=== PATIENT | female | born 1980 | race Caucasian/White ===

== ENCOUNTER 2016-10-09 09:49 | Emergency (ER) | payer OTHER ==
[~2016-10-09] VITALS: Ht 160 cm; Wt 68.0 kg
--- NOTE | 2016-10-09 11:03 | ED GENERAL ADULT ---
History of Present Illness General Chief Complaint: Palpitations Stated Complaint: LIGHTHEADED, PALPITATIONS, BLURRY VISION Source: patient Exam Limitations: no limitations Vital Signs & Intake/Output Vital Signs & Intake/Output Vital Signs Date Time Temp Pulse Resp B/P Pulse O2 O2 Flow FiO2 Ox Delivery Rate 10/09 1346 97.6 74 18 109/62 98 Room Air 10/09 1210 Room Air Room Air 10/09 1210 97.3 88 18 108/58 100 Room Air 10/09 1005 96.9 100 20 114/66 100 Room Air Allergies Coded Allergies: banana (Intermediate, STOMACH PAIN 10/09/16) gluten (Intermediate, ?R/T CELIAC DISEASE 10/09/16) Reconcile Medications No Known Home Medications Triage Note: TRIAGE: PT TO ER C/C LIGHTHEADEDNESS, PALPITATIONS, BLURRY VISION, STOMACH PAIN AND NAUSEA WHEN EATING OR DRINKING. HAD "REALLY BAD VERTIGO STARTING SUNDAY" BUT NOW JUST LIGHTHEADED. WAS IN [place] ED ON SUNDAY AND WAS TOLD "BECAUSE THEY THOUGHT I HAVE LYME DISEASE AND IF I HAVE A CHRONIC ILLNESS I SHOULDN'T BE IN THE EMERGENCY ROOM". WAS REFERRED "TO EVERY SINGLE KIND OF DOCTOR AND TOLD ME TO GO TO THEM ALL". WAS SEEN AT PMD'S OFFICE ON SUNDAY AND WAS TOLD IT WAS VERTIGO, STARTED ON MECLIZINE "BUT IT DIDN'T REALLY HELP, JUST MADE ME REALLY TIRED". CALLED PMD SUNDAY AND HAD PRESCRIPTION FOR SCOPALAMINE, PLACED SAME ON SUNDAY AND REMOVED YESTERDAY. STATES IT DIDN'T REALLY HELP. ON SUNDAY SAW DR PALMA "BECAUSE MY HEART WAS GOING REALLY CRAZY" AND HAD EKG. DR PALMA REFERRED PATIENT FOR OUTPATIENT BLOOD WORK FOR LYME DISEASE WHICH SHE HAS NOT HAD DONE YET, WAS HOPING SHE COULD GET IT DONE WHILE IN THE ER TODAY. Triage Nurses Notes Reviewed? yes Onset: Gradual Duration: week(s): (1) Timing: no prior history Injury Environment: home Severity: moderate Severity Numbers: 8 Modifying Factors: Improves With: immobilization. Worsens With: movement. : No Patient currently breastfeeds: No HPI: Patient is a 35-year-old female with history of cholecystectomy and scleral banding presenting to the emergency department with chief complaint of nausea, episodes of blurred vision, lightheadedness and dizziness that have been going on for the past one week. She reports that she was tested for Lyme about one year ago because she had similar symptoms and only 1 band K back positive. She was not treated for Lyme at the time. She has been fine since then. No history of tick bites or rashes. She reports dizziness is worse with positional changes. She reports that the dizziness has somewhat somewhat subsided over the past week with meclizine and scopolamine patches. She was seen and another emergency department and told that they do not treat chronic issues and also to follow-up with her PCP. She followed up with her PCP 5 days ago and was given a scopolamine patch. She reports little to no change with a scopolamine patch in addition to the meclizine. No actual vomiting. Denies any change in bowel habits. Denies any urinary frequency urgency or dysuria. Denies any recent change in contact lens prescription. Her father has multiple sclerosis. Denies abdominal pain. Denying any weakness. She reports low-grade fevers over the past 1 week. MAXIMUM TEMPERATURE of 100F. No neck pain. No headaches. (KERI LOWRY) Past History Travel History Traveled to [place] past 21 day No Medical History Any Pertinent Medical History? 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 No (KERI LOWRY) Review of Systems Review of Systems Constitutional: Reports: fever, malaise. Comments Review of systems: See HPI, All other systems negative. Constitutional, no chills or weight loss HEENT: no sore throat no congestion Cardiovascular: No chest pain , orthopnea or ankle swelling Skin, no jaundice no rashes Respiratory: No dyspnea cough sputum or hemoptysis GI: no vomiting : No dysuria No hematuria Muscle skeletal: no back pain, no neck pain, Neurologic: No numbness no confusion NO BENNETT Psych: No stress anxiety or depression,. Heme/endocrine: No bruising no bleeding no polyuria or polydipsia Immunology: No splenectomy or history of AIDS (KERI LOWRY) Physical Exam Physical Exam General Appearance: well developed/nourished, no apparent distress, alert, awake , comfortable Comments: Well-developed well-nourished person in no acute distress HEENT: Normal EENT exam, extraocular motion intact, no nystagmus. Pupils equally round and reactive to light and accommodation. Nose is atraumatic. External auditory canal and Tympanic membranes clear. Pharynx normal. No swelling or edema. Funduscopic exam is limited secondary to no dilation prior to the exam although no obvious abnormalities noted. No retinal HEMORRAGE, detachment present. Neck: Supple, no lymphadenopathy, normal range of motion without pain or tenderness Back: Nontender, no CVA tenderness. Full range of motion Cardiovascular: TACHY rate and rhythms no murmurs rubs or gallops, normal JVP Respiratory: Chest nontender. No respiratory distress.breath sounds clear to auscultation bilaterally Abdomen: Soft, nontender nondistended, no appreciable organomegaly. Normal bowel sounds. No ascites Extremity: No edema, no calf tenderness to palpation, normal and equal pulses. Neuro: Alert oriented x3, motor sensory normal, cranial nerves II through XII grossly intact. Cerebellar testing unremarkable. Cerebellar testing is unremarkable. Skin: No appreciable rash on exposed skin, skin is warm and dry. Psych: Mood and affect is normal, memory and judgment is normal. Core Measures ACS in differential dx? No CVA/TIA Diagnosis: No Severe Sepsis Present: No Septic Shock Present: No (KERI LOWRY) Progress Differential Diagnoses I considered the following diagnoses in my evaluation of the patient: Viral labyrinthitis, vertigo, viral syndrome, multiple sclerosis, intracranial mass/ process, dehydration, like to abnormality, Lyme disease or other tickborne illness Plan of Care: Orders Procedure Date/time Status Add-on Test (ER Only) 10/09 1250 Active CULTURE,URINE 10/09 1154 Active FOLIC ACID 10/09 1132 Complete VITAMIN B12 10/09 1132 Complete MISTAKE 10/09 1128 Active URINE 10/09 1128 Complete URINALYSIS 10/09 1128 Complete TSH REFLEX 10/09 1128 Complete TROPONIN LEVEL 10/09 1128 Complete LYME TITRE 10/09 1128 Active COMPREHENSIVE METABOLIC PANEL 10/09 1128 Complete CBC WITHOUT DIFFERENTIAL 10/09 112 Complete EKG 10/09 0952 Active Laboratory Tests 10/09/16 1200: Vitamin B12 > 1000 H, Folate > 20.0 H 10/09/16 1200: Anion Gap 10, Estimated GFR > 60, BUN/Creatinine Ratio 7.1, Glucose 94, Calcium 10.3 H, Total Bilirubin 1.2, AST 16, ALT 38, Alkaline Phosphatase 60, Troponin I < 0.01, Total Protein 7.3, Albumin 4.6, Globulin 2.7, Albumin/Globulin Ratio 1.7, TSH &T3 &Free T4 Intrp 0.860, CBC w Diff NO MAN DIFF REQ, RBC 5.45 H, MCV 85.2, MCH 29.4, RDW 13.4, MPV 10.1, Gran % 72.8, Lymphocytes % 21.4, Monocytes % 5.0, Eosinophils % 0.3, Basophils % 0.5, Absolute Granulocytes 4.9, Absolute Lymphocytes 1.5, Absolute Monocytes 0.3, Absolute Eosinophils 0, Absolute Basophils 0, PUBS MCHC 34.5, Lyme Disease Antibody Pending 10/09/16 1154: Urine Color STRAW, Urine Clarity HAZY H, Urine pH 7.0, Ur Specific [place] 1.010, Urine Protein NEG, Urine Ketones >=80, Urine Nitrite NEG, Urine Bilirubin NEG, Urine Urobilinogen 0.2, Ur Leukocyte Esterase TRACE H, Ur Microscopic SEDIMENT EXAMINED, Urine RBC RARE, Urine WBC 1-3 H, Ur Epithelial Cells MANY H , Urine Bacteria MOD H, Urine Mucus RARE, Urine Hemoglobin NEG, Urine Glucose NEG, Urine Test NEGATIVE Microbiology 10/09 115 URINE ROUT: Urine Culture - RECD Diagnostic Imaging: Viewed by Me: Radiology Read. Discussed w/RAD: Radiology Read. Radiology Impression: PATIENT: CRISTY TOM PRESENT AGE: 35 PATIENT ACCOUNT NO: [id number] : 79 LOCATION: [facility] ORDERING PHYSICIAN: KERI PETERSON SERVICE DATE: 10/09/16-1135 EXAM TYPE: CAT - CT HEAD WO IV CONTRAST EXAMINATION: CT HEAD WITHOUT CONTRAST CLINICAL INFORMATION: Dizziness and vision changes. COMPARISON: None TECHNIQUE: Contiguous axial imaging was performed from the skull base to vertex without intravenous administration of contrast. DLP: 600 mGy-cm FINDINGS: There is no evidence of acute intracranial hemorrhage or territorial infarction. No abnormal mass effect or midline shift is seen. Chaudhry to white matter differentiation is well preserved. No extra-axial fluid collections are identified. The ventricles are normal in size. There is no abnormal attenuation within the brain parenchyma. The osseous structures and soft tissues are normal. The mastoid air cells and visualized portions of the paranasal sinuses are well aerated. IMPRESSION: No acute intracranial process seen. Initial ED EKG: NONSPECIFIC t ABNORMALITIES IN THE INFERIOR LEADS, 86 BPM Prior EKG: unchanged Comments: 10/09/2016 11:52:30 AM arrival patient is in no acute distress, borderline tachycardic EKGs normal sinus with no acute changes. Patient reporting visual changes with nausea and vertigo-like symptoms 1 week with positive family history of MS. Patient is 35 and has not been evaluated for MS in the past. She has never had symptoms in the past. Patient also reports that her primary care physician gave her a requisition for Lyme titer to be done this week. Patient is currently stable vitals are stable. No focal deficits or exam findings. She'll be hydrated with fluids. We'll assess with blood work, B12, folic acid level as patient does have restricted diet secondary to being a vegetarian. We'll also assess orthostatics. Patient will go for CT of the head , it was extending to the patient that this is not the best imaging to assess for MS but it is a good initial imaging study. She will likely need outpatient MRI and neurology follow-up. 10/09/2016 1:36:52 PM patient informed of all lab work results and imaging studies. Patient feeling improved after fluids. Feels less "shaky". Blood glucose level was 94 on blood work. PERC negative. Patient will follow up with neurology if symptoms persists. Educated on use of [id number] LIPO FLAVINOID PLUS. Thyroid function within normal range. Troponin is negative. EKG is essentially unchanged. Patient educated on increasing fluids as well as she does have more than 80 ketones in her urine. (JEFFREY PETERSON,KERI) Departure Departure Time of Disposition: 1330 Disposition: OTHER [facility] (ACUTE) Condition: Stable Clinical Impression Primary Impression: Dizziness Secondary Impressions: Palpitations Referrals: ARTI SIDHU,EVER WARD MD,IRASEMA Quintana (PCP/Family) Additional Instructions: Follow-up with your primary care physician as well as with neurology. He will need further evaluation if symptoms persist. Try using liPO flavonoid plus over -the-counter to help with dizziness. Increase fluid intake. You may eventually need an MRI of her brain. Return for worsening symptoms or concerns. Departure Forms: Customer Survey General Discharge Information Prescriptions: Current Visit Scripts No Known Home Medications (KERI LOWRY) PA/COMPENSATION CONSULTANT Co-Sign Statement Statement: ED Attending supervision documentation- [] I saw and evaluated the patient. I have also reviewed all the pertinent lab results and diagnostic results. I agree with the findings and the plan of care as documented in the PA's/COMPENSATION CONSULTANT's documentation. [X] I have reviewed the ED Record and agree with the PA's/COMPENSATION CONSULTANT's documentation. [] Additions or exceptions (if any) to the PAs/COMPENSATION CONSULTANT's note and plan are summarized below: [] (MILI SIDHU,RODOLFO Ortiz) Critical Care Note Critical Care Note Critical Care Time: non-applicable (KERI LOWRY)
[2016-10-09 12:12] LABS: ABSOLUTE BASOPHIL COUNT 0 /CUMM (0.0-0.2); ABSOLUTE EOSINOPHIL COUNT 0 /CUMM (0.0-0.7); ABSOLUTE GRANULOCYTE CT 4.9 /CUMM (1.4-6.5); ABSOLUTE LYMPH COUNT 1.5 /CUMM (1.2-3.4); ABSOLUTE MONOCYTE COUNT 0.3 /CUMM (0.10-0.60); BASOPHIL % 0.5 % (0.0-2.0); EOSINOPHIL % 0.3 % (0-5); GRANULOCYTE % 72.8 % (42.2-75.2); HEMATOCRIT 46.5 % (37-47); MEAN CORPUSCULAR HGB 29.4 PG (27.0-31.0); MEAN CORPUSCULAR HGB CONC 34.5 G/DL (33.0-37.0); MEAN CORPUSCULAR VOLUME 85.2 FL (81.0-99.0); MEAN PLATELET VOLUME 10.1 FL (7.4-10.4); PLATELET COUNT 231 /CUMM (130-400); RBC DISTRIBUTION WIDTH 13.4 % (11.5-14.5); RED BLOOD CELL CT 5.45 /CUMM (4.20-5.40); WHITE BLOOD CELL COUNT 6.8 /CUMM (4.8-10.8)
--- NOTE | 2016-10-09 13:19 | CT SCAN REPORT ---
EXAMINATION: CT HEAD WITHOUT CONTRAST CLINICAL INFORMATION: Dizziness and vision changes. COMPARISON: None TECHNIQUE: Contiguous axial imaging was performed from the skull base to vertex without intravenous administration of contrast. DLP: 600 mGy-cm FINDINGS: There is no evidence of acute intracranial hemorrhage or territorial infarction. No abnormal mass effect or midline shift is seen. Chaudhry to white matter differentiation is well preserved. No extra-axial fluid collections are identified. The ventricles are normal in size. There is no abnormal attenuation within the brain parenchyma. The osseous structures and soft tissues are normal. The mastoid air cells and visualized portions of the paranasal sinuses are well aerated. IMPRESSION: No acute intracranial process seen.
[2016-10-09 13:46] VITALS: BP 109/62
== END 2016-10-09 13:51 | disposition short-term general hospital (02) ==
LOC: ERH 09:49
PROVIDERS: Physician Assistant
DX: R42 Dizziness and giddiness (principal); R00.2 Palpitations; H53.8 Other visual disturbances; R11.0 Nausea
CPT/HCPCS: 86618; 81001; 81025; 87086; 93005; 93010

== ENCOUNTER 2018-02-17 07:26 | Emergency (ER) | payer OTHER ==
[~2018-02-17] VITALS: Ht 160 cm; Wt 68.0 kg
[~2018-02-17 07:26] MED LIST: MULTIVITAMINS1 EAC9 PO; VITAMIN D1000 UNIT PO
[2018-02-17 08:19] LABS: ABSOLUTE BASOPHIL COUNT 0 /CUMM (0.0-0.2); ABSOLUTE EOSINOPHIL COUNT 0.1 /CUMM (0.0-0.7); ABSOLUTE GRANULOCYTE CT 3.7 /CUMM (1.4-6.5); ABSOLUTE LYMPH COUNT 1.2 /CUMM (1.2-3.4); ABSOLUTE MONOCYTE COUNT 0.3 /CUMM (0.10-0.60); BASOPHIL % 0.6 % (0.0-2.0); EOSINOPHIL % 1.8 % (0-5); GRANULOCYTE % 68.8 % (42.2-75.2); HEMATOCRIT 45.7 % (37-47); MEAN CORPUSCULAR HGB 29.6 PG (27.0-31.0); MEAN CORPUSCULAR HGB CONC 34.2 G/DL (33.0-37.0); MEAN CORPUSCULAR VOLUME 86.5 FL (81.0-99.0); MEAN PLATELET VOLUME 11.1 FL (7.4-10.4); PLATELET COUNT 196 /CUMM (130-400); RED BLOOD CELL CT 5.28 /CUMM (4.20-5.40); WHITE BLOOD CELL COUNT 5.4 /CUMM (4.8-10.8)
--- NOTE | 2018-02-17 11:00 | ED GI/GU/ABDOMINAL COMPLAINT ---
History of Present Illness General Chief Complaint: Nausea, Vomiting, Diarrhea Stated Complaint: NAUSEA Source: patient Exam Limitations: no limitations Vital Signs & Intake/Output Vital Signs & Intake/Output Vital Signs Date Time Temp Pulse Resp B/P B/P Pulse O2 O2 Flow FiO2 Mean Ox Delivery Rate 02/17 1138 98.2 80 20 108/60 99 02/17 0935 82 20 112/62 98 Room Air 02/17 0730 98.0 99 18 115/81 98 Room Air Allergies Coded Allergies: banana (Intermediate, STOMACH PAIN 10/09/16) gluten (Intermediate, DOES NOT HAVE CELIACS, HAS SENSITIVITY PER PT 05/20/17) Reconcile Medications Cholecalciferol (Vitamin D3) (Vitamin D) 1,000 UNIT TABLET 1 TAB PO DAILY SUPPLEMENT (Reported) Multiple Vitamin (Multivitamins) 1 EACH TABLET 1 TAB PO DAILY SUPPLEMENT ( Reported) Triage Note: 37 YO FEMALE TOT RIAGE FOR EVAL OF RLQ PAIN AND +NAUSEA SINCE THIS AM. PT DENIES URIANRY S/S, DENIES DIARRHEA. AFEBRILE. Triage Nurses Notes Reviewed? yes LMP (ages 10-50): unknown ? N Is pt currently ? No Onset: Abrupt Duration: day(s): (2), constant, continues in ED, getting worse Timing: single episode today Quality/Severity: cramping Severity Numbers: 5 Location: right lower quadrant Radiation: no radiation Activities at Onset: none Prior Abdominal Problems: none Past Sexual History: Unobtainable at this time No Modifying Factors: none HPI: 37-year-old female history of endometriosis, celiac disease resents for evaluation of right lower quadrant abdominal pain and nausea. Patient states symptoms started about 2 days ago and been persistent. The pain is located in the right lower quadrant does not radiate describes cramping. She states that this pain is different from her usual endometriosis pain. No vaginal bleeding no discharge. No diarrhea. She reports nausea but no vomiting. She is not taken any medicine for pain she rates the pain as a 5 out of 10. No recent abdominal surgery. She is status post cholecystectomy. No fever no shortness of breath no back pain or urinary symptoms (Elliot Lima) Past History Travel History Traveled to [place] past 21 day No Medical History Any Pertinent Medical History? see below for history Neurological: NONE EENT: DETACHED RETINA Cardiovascular: NONE Respiratory: NONE Gastrointestinal: ?CELIAC DISEASE Hepatic: cholelithiasis Renal: nephrolithiasis Musculoskeletal: SHINGLES Psychiatric: NONE Endocrine: NONE Blood Disorders: NONE Cancer(s): NONE CIRCLE EDGER/Reproductive: endometriosis Surgical History Surgical History: cholecystectomy, LASER THERAPY TO LEFT EYE FOR RETINAL DETACHMENT Psychosocial History What is your primary language Ivorian Tobacco Use: Never used Family History Family History, If Any: Relation not specified for: FHx: multiple sclerosis Hx Contributory? No (Elliot Lima) Review of Systems Review of Systems Constitutional: Reports: no symptoms. EENTM: Reports: no symptoms. Respiratory: Reports: no symptoms. Cardiovascular: Reports: no symptoms. GI: Reports: see HPI, abdominal pain, nausea. Genitourinary: Reports: no symptoms. Musculoskeletal: Reports: no symptoms. Skin: Reports: no symptoms. Neurological/Psychological: Reports: no symptoms. Hematologic/Endocrine: Reports: no symptoms. Immunologic/Allergic: Reports: no symptoms. All Other Systems: Reviewed and Negative (Elliot Lima) Physical Exam Physical Exam General Appearance: well developed/nourished, no apparent distress, alert, awake Head: atraumatic, normal appearance Eyes: Bilateral: normal appearance, PERRL, EOMI. Ears, Nose, Throat, Mouth: hearing grossly normal, moist mucous membrane Neck: normal inspection, supple, full range of motion Respiratory: normal breath sounds, chest non-tender, no respiratory distress, lungs clear Cardiovascular: regular rate/rhythm, normal peripheral pulses Peripheral Pulses: 2+ radial (R), 2+ radial (L) Gastrointestinal: normal bowel sounds, soft, no organomegaly, tenderness (right lower quadrant) Back: normal inspection, normal range of motion, no vertebral tenderness Extremities: normal range of motion Neurologic/Psych: no motor/sensory deficits, awake, alert, oriented x 3, normal gait, normal mood/affect Skin: intact, normal color, warm/dry Core Measures ACS in differential dx? No Sepsis Present: No Sepsis Focused Exam Completed? No (Elliot Lima) Progress Differential Diagnosis: appendicitis, biliary colic, bowel obstruction, diverticulitis, ectopic , endometritis, hepatitis, hernia, ischemic bowel, inflamm bowel dis, intrauterine , kidney stone, ovarian cyst, pancreatitis, SBO, threatened AB, UTI/pyelo Plan of Care: Orders Procedure Date/time Status Add-on Test (ER Only) 02/17 1025 Active Add-on Test (ER Only) 02/17 0851 Active LIPASE 02/17 758 Complete HUMAN BETA HCG SCREEN 02/17 758 Complete C-REACTIVE PROTEIN 02/17 758 Complete COMPREHENSIVE METABOLIC PANEL 02/17 757 Complete CBC WITHOUT DIFFERENTIAL 02/17 757 Complete URINALYSIS 02/17 07 Complete Laboratory Tests 02/17/18 0758: Anion Gap 12, Estimated GFR > 60, BUN/Creatinine Ratio 11.4, Glucose 102 H, Calcium 9.4, Total Bilirubin 0.8, AST 18, ALT 36, Alkaline Phosphatase 55, C- Reactive Prot, Quant < 0.5, Total Protein 6.7, Albumin 4.2, Globulin 2.5, Albumin/Globulin Ratio 1.7, Lipase 465 H, Total Beta HCG NEGATIVE, CBC w Diff NO MAN DIFF REQ, RBC 5.28, MCV 86.5, MCH 29.6, MCHC 34.2, RDW 13.0, MPV 11.1 H, Gran % 68.8, Lymphocytes % 23.1, Monocytes % 5.7, Eosinophils % 1.8, Basophils % 0.6, Absolute Granulocytes 3.7, Absolute Lymphocytes 1.2, Absolute Monocytes 0.3 , Absolute Eosinophils 0.1, Absolute Basophils 0 02/17/18 0743: Urine Color STRAW, Urine Clarity CLEAR, Urine pH 7.0, Ur Specific [place] 1.015, Urine Protein NEG, Urine Ketones 15 H, Urine Nitrite NEG, Urine Bilirubin NEG, Urine Urobilinogen 0.2, Ur Leukocyte Esterase NEG, Ur Microscopic EXAM NOT REQUIRED, Urine Hemoglobin NEG, Urine Glucose NEG \ Patient is here with right lower quadrant abdominal pain started 2 days ago is been persistent and constant since. Patient does have a history of chronic abdominal issues including endometriosis and celiac disease. She appears clinically well. Labs ordered CT scan of the abdomen and pelvis ordered to rule out appendicitis. Patient medicated with Toradol and Zofran Lab work is unremarkable. Lipase is mildly elevated at 465. Patient denies alcohol use. She denies any upper abdominal pain or back pain. Negative white blood cell count negative CRP. CT scan of the abdomen and pelvis is negative. Patient is feeling better after being medicated with Toradol and Zofran. Reviewed all results of today's visit with patient. Advised rest and plenty of fluids follow-up with CIVIL ENGINEERING INTERN. Discussed return cautions in detail patient agrees the plan Diagnostic Imaging: Viewed by Me: CT Scan. Discussed w/RAD: CT Scan. Radiology Impression: PATIENT: CRISTY TOM PRESENT AGE: 37 PATIENT ACCOUNT NO: [id number] : 79 LOCATION: [facility] ORDERING PHYSICIAN: Elliot PETERSON SERVICE DATE: 02/17/18 EXAM TYPE: CAT - CT ABD & PELVIS W IV CONTRAST EXAMINATION: CT ABDOMEN AND PELVIS WITH CONTRAST CLINICAL INFORMATION: Right lower quadrant pain. Presumptive diagnosis appendicitis or ovarian cyst. COMPARISON: 10/23/2014 TECHNIQUE: Multidetector volumetric imaging was performed of the abdomen and pelvis following IV administration of 95 mL of Optiray 320 intravenous contrast. Sagittal and coronal reformatted images were obtained on the technologist's workstation. DLP: 362 mGy-cm FINDINGS: LUNG BASES: The visualized lung bases are unremarkable. LIVER, GALLBLADDER, AND BILIARY TREE: The liver is normal in size, shape, and attenuation. No focal hepatic lesion or biliary ductal dilatation is present. Gallbladder is not seen, possibly collapsed or surgically absent. No biliary ductal dilatation. PANCREAS: Unremarkable. SPLEEN: Unremarkable. ADRENAL GLANDS: Unremarkable. KIDNEYS AND URETERS: Symmetric bilateral renal enhancement. Subcentimeter likely simple cyst of the upper pole of the left kidney this was present previously in 2014. No hydronephrosis or calculi. No suspicious renal mass. BLADDER: Unremarkable. GASTROINTESTINAL TRACT: Stomach and small bowel are nondilated. The appendix is well-seen, particularly on coronal images, for example coronal image 27 and 28 of 81, and normal in appearance. Scattered colonic diverticulosis. No evidence of colitis or diverticulitis. ABDOMINAL WALL : Small fat-containing umbilical hernia. LYMPH NODES: No pathologically enlarged lymphadenopathy. VASCULAR: Unremarkable. PELVIC VISCERA: Physiologic follicular cyst in the right ovary. Trace physiologic free fluid in the pelvis. No adnexal mass. Normal CT appearance of the uterus and cervix. OSSEOUS STRUCTURES: Unremarkable. IMPRESSION: Normal appendix. Normal CT appearance of the ovaries. No CT findings to explain the patient's symptoms. DICTATED BY: Deo Jacinto MD DATE/TIME DICTATED:02/17/181048 CLEAN UP HELPER BANQUET:CLEMENCIA DATE/TIME TRANSCRIBED:02/17/181048 CONFIDENTIAL, DO NOT COPY WITHOUT APPROPRIATE AUTHORIZATION. <Electronically signed in Other Vendor System> SIGNED BY: Deo Jacinto MD 02/17/18 9786 Initial ED EKG: none (Elliot Lima) Departure Departure Disposition: HOME OR SELF CARE Condition: Stable Clinical Impression Primary Impression: Abdominal pain Qualifiers: Abdominal location: right lower quadrant Qualified Code: R10.31 - Right lower quadrant pain Referrals: Jacy Belcher DO (PCP/Family) Additional Instructions: Rest, drink plenty of fluids. Tylenol ibuprofen for pain. Make a follow-up appointment with your CIVIL ENGINEERING INTERN doctor and your primary care doctor to review all results of today's visit and monitor symptoms return with any concerns. Departure Forms: Customer Survey General Discharge Information (Elliot Lima) PA/RN OCCUPATIONAL Co-Sign Statement Statement: ED Attending supervision documentation- [] I saw and evaluated the patient. I have also reviewed all the pertinent lab results and diagnostic results. I agree with the findings and the plan of care as documented in the PA's/RN OCCUPATIONAL's documentation. [x] I have reviewed the ED Record and agree with the PA's/RN OCCUPATIONAL's documentation. [] Additions or exceptions (if any) to the PAs/RN OCCUPATIONAL's note and plan are summarized below: [] (Ramana SIDHU,[facility])
--- NOTE | 2018-02-17 11:03 | CT SCAN REPORT ---
EXAMINATION: CT ABDOMEN AND PELVIS WITH CONTRAST CLINICAL INFORMATION: Right lower quadrant pain. Presumptive diagnosis appendicitis or ovarian cyst. COMPARISON: 10/23/2014 TECHNIQUE: Multidetector volumetric imaging was performed of the abdomen and pelvis following IV administration of 95 mL of Optiray 320 intravenous contrast. Sagittal and coronal reformatted images were obtained on the technologist's workstation. DLP: 362 mGy-cm FINDINGS: LUNG BASES: The visualized lung bases are unremarkable. LIVER, GALLBLADDER, AND BILIARY TREE: The liver is normal in size, shape, and attenuation. No focal hepatic lesion or biliary ductal dilatation is present. Gallbladder is not seen, possibly collapsed or surgically absent. No biliary ductal dilatation. PANCREAS: Unremarkable. SPLEEN: Unremarkable. ADRENAL GLANDS: Unremarkable. KIDNEYS AND URETERS: Symmetric bilateral renal enhancement. Subcentimeter likely simple cyst of the upper pole of the left kidney this was present previously in 2014. No hydronephrosis or calculi. No suspicious renal mass. BLADDER: Unremarkable. GASTROINTESTINAL TRACT: Stomach and small bowel are nondilated. The appendix is well-seen, particularly on coronal images, for example coronal image 27 and 28 of 81, and normal in appearance. Scattered colonic diverticulosis. No evidence of colitis or diverticulitis. ABDOMINAL WALL: Small fat-containing umbilical hernia. LYMPH NODES: No pathologically enlarged lymphadenopathy. VASCULAR: Unremarkable. PELVIC VISCERA: Physiologic follicular cyst in the right ovary. Trace physiologic free fluid in the pelvis. No adnexal mass. Normal CT appearance of the uterus and cervix. OSSEOUS STRUCTURES: Unremarkable. IMPRESSION: Normal appendix. Normal CT appearance of the ovaries. No CT findings to explain the patient's symptoms.
[2018-02-17 11:38] VITALS: BP 108/60
== END 2018-02-17 11:43 ==
LOC: ERH 07:26
PROVIDERS: Emergency Medicine
DX: R10.31 Right lower quadrant pain (principal)
CPT/HCPCS: 74177; 81003; 96374; 96375; J1885; J2405